=== PATIENT | male | born 1965 | race Caucasian/White ===

== ENCOUNTER 2016-11-28 15:48 | Emergency (ER) | payer MEDICAID ==
[~2016-11-28] VITALS: Ht 177.8 cm; Wt 80.0 kg
[~2016-11-28 15:48] MED LIST: PHEN100C4
[2016-11-28] MEDS ORDERED: LORAZEPAM 2MG/ML CPJ IM STA (16:04)
[2016-11-28] MEDS ORDERED: OLANZAPINE 10 MG/VIAL IM ONE (16:15)
[2016-11-28 17:44] LABS: CHLORIDE 106 mEq/L (98-107); INDEX HEMOLYSI 1 (1-3); INDEX ICTERIC 1 (1-4); INDEX LIPEMIC 1 (1-3)
[2016-11-28 17:45] LABS: BASOPHILS % 0.9 % (0.0-2.0); EOSINOPHILS % 2.6 % (0.0-5.0); HEMATOCRIT. 43.7 % (42.0-52.0); LYMPHOCYTES % 12.4 % (20.0-50.0); MEAN CORPUSCULAR HEMOGLOBIN 31.2 pg (28.0-32.0); MEAN CORPUSCULAR HGB CONC 34.2 g/dL (31.0-37.0); MEAN CORPUSCULAR VOLUME 91.3 fL (80.0-94.0); MEAN PLATELET VOLUME 8.9 fl (7.4-10.4); MONOCYTES % 7.4 % (2.0-8.0); NEUTROPHILS % 76.7 % (40.0-76.0); PLATELET 172 x1000/uL (130-400); RED BLOOD CELL COUNT 4.79 mill/uL (4.7-6.1); RED CELL DISTRIBUTION WIDTH 13.3 % (11.6-14.6); WHITE BLOOD COUNT 7.2 x1000/uL (4.5-11.0)
[2016-11-28 17:46] LABS: INR 1.1; PROTHROMBIN TIME 11.6 sec
[2016-11-28 17:47] LABS: ALBUMIN 3.4 g/dL (3.4-5.0); CALCIUM 8.1 mg/dL (8.5-10.1)
[2016-11-28 17:48] LABS: ANION GAP 13; CARBON DIOXIDE 25 mEq/L (21-32); UREA NITROGEN BLOOD 15 mg/dL (7-21)
[2016-11-28 17:49] LABS: HCG SCREEN NEGATIVE
[2016-11-28 17:50] LABS: ALANINE AMINOTRANSFERASE 45 IU/L (13-61)
[2016-11-28 17:51] LABS: eGFR > 60 mL/min (>60)
[2016-11-28 17:57] LABS: CARBAMAZEPINE < 0.5 ug/mL (4-12); PHENOBARBITAL < 2.1 ug/mL (15.0-40.0); VALPROIC ACID 5.2 ug/mL (50-100)
[2016-11-28] MEDS ORDERED: LEVETIRACETAM 500MG TABLET PO ONE (23:00)
[2016-11-29 07:42] VITALS: BP 80/48
== END 2016-11-29 09:39 | disposition home or self-care (01) ==
LOC: ER 15:49
DX: R56.9 Unspecified convulsions (principal); F31.9 Bipolar disorder, unspecified; F20.9 Schizophrenia, unspecified; F32.9 Major depressive disorder, single episode, unspecified
CPT/HCPCS: 36415; 80053; 80156; 80165; 80184; 80185; 82962; 84703; 85025; 85610; 96372; 99284; J2060; J3490; Z7610